=== PATIENT | female | born 1985 | race Caucasian/White ===

== ENCOUNTER 2017-03-06 13:07 | Emergency (ER) | payer OTHER ==
[~2017-03-06] VITALS: Ht 157.5 cm; Wt 54.4 kg
[2017-03-06 14:13] VITALS: BP 118/72
== END 2017-03-06 14:13 | disposition home or self-care (01) ==
LOC: ED 13:07
DX: S90.121A Contusion of right lesser toe(s) without damage to nail, initial encounter (principal); X58.XXXA Exposure to other specified factors, initial encounter; Y93.89 Activity, other specified; Y92.89 Other specified places as the place of occurrence of the external cause; Y99.8 Other external cause status
CPT/HCPCS: Q0092

== ENCOUNTER 2017-07-21 09:57 | Emergency (ER) | payer OTHER ==
[~2017-07-21] VITALS: Ht 157.5 cm; Wt 54.6 kg
[2017-07-21 12:32] LABS: BASOPHIL % 0.4 % (0-2)
[2017-07-21 12:35] LABS: PLATELET COUNT 419 x10^3mcL (130-400); RED CELL DISTRIBUTION WIDTH 15.1 % (11.5-14.5)
[2017-07-21 12:36] LABS: UA SPECIFIC GRAVITY <=1.005 (1.005-1.035); microscopic required? YES; urine erythrocyte NEGATIVE (NEGATIVE)
[2017-07-21 12:42] LABS: CALCIUM 9.1 mg/dL (8.5-10.1); CARBON DIOXIDE 27.8 mmol/L (21-32); CHLORIDE SERUM 102 mmol/L (98-107); CREATININE SERUM 0.6 mg/dL (0.6-1.0); GFR1 > 60 mL/min; GLUCOSE SERUM 90 mg/dL (74-106); POTASSIUM SERUM 3.9 mmol/L (3.5-5.1); SODIUM SERUM 137 mmol/L (136-145)
[2017-07-21 12:47] LABS: ALBUMIN 3.9 g/dL (3.4-5.0); ALKALINE PHOSPHATASE 43 U/L (46-116); ALT/SGPT 20 U/L (14-59); AST/SGOT 17 U/L (15-37); BILIRUBIN TOTAL 0.36 mg/dL (0.20-1.00); TOTAL PROTEIN, SERUM 8.3 g/dL (6.4-8.2)
[2017-07-21 14:14] VITALS: BP 103/62
== END 2017-07-21 14:25 | disposition home or self-care (01) ==
LOC: ED 09:57
PROVIDERS: Emergency Medicine
DX: O26.891 Other specified pregnancy related conditions, first trimester (principal); R53.1 Weakness; R11.0 Nausea; Z88.0 Allergy status to penicillin; F41.9 Anxiety disorder, unspecified; M79.7 Fibromyalgia; M06.9 Rheumatoid arthritis, unspecified
CPT/HCPCS: J2405; J7030

== ENCOUNTER 2017-09-29 09:15 | Emergency (ER) | payer OTHER ==
[~2017-09-29] VITALS: Ht 157.5 cm; Wt 54.5 kg
[2017-09-29 09:27] VITALS: BP 137/77; Ht 157.5 cm; Wt 54.5 kg
== END 2017-09-29 12:08 | disposition home or self-care (01) ==
LOC: ED 09:15
DX: O03.9 Complete or unspecified spontaneous abortion without complication (principal); M79.7 Fibromyalgia; Z88.0 Allergy status to penicillin

== ENCOUNTER 2018-03-03 17:11 | Emergency (ER) | payer OTHER ==
[~2018-03-03] VITALS: Ht 157.5 cm; Wt 55.3 kg
[2018-03-03 17:21] VITALS: Ht 157.5 cm; Wt 55.3 kg
[2018-03-03 17:35] LABS: BASOPHIL % 0.5 % (0-2); PLATELET COUNT 359 x10^3mcL (130-400)
[2018-03-03 17:42] LABS: microscopic required? NO
[2018-03-03 17:48] LABS: UA SPECIFIC GRAVITY <=1.005 (1.005-1.035); urine erythrocyte NEGATIVE (NEGATIVE)
[2018-03-03 18:17] LABS: RED CELL DISTRIBUTION WIDTH 16.5 % (11.5-14.5)
[2018-03-03 19:09] VITALS: BP 103/69
== END 2018-03-03 19:09 | disposition home or self-care (01) ==
LOC: ED 17:11
PROVIDERS: Emergency Medicine
DX: O20.0 Threatened abortion (principal); N93.9 Abnormal uterine and vaginal bleeding, unspecified; M54.5 Low back pain; M06.9 Rheumatoid arthritis, unspecified; Z88.0 Allergy status to penicillin; Z3A.01 Less than 8 weeks gestation of pregnancy
CPT/HCPCS: 36415; Q0092

== ENCOUNTER 2018-03-23 11:47 | Emergency (ER) | payer OTHER ==
[~2018-03-23] VITALS: Ht 157.5 cm; Wt 56.2 kg
[2018-03-23 11:52] VITALS: Ht 157.5 cm; Wt 56.2 kg
[2018-03-23 12:31] LABS: BASOPHIL % 0.4 % (0-2); PLATELET COUNT 347 x10^3mcL (130-400)
[2018-03-23 12:33] LABS: RED CELL DISTRIBUTION WIDTH 16.4 % (11.5-14.5)
[2018-03-23 12:53] LABS: UA SPECIFIC GRAVITY <=1.005 (1.005-1.035); microscopic required? YES; urine erythrocyte NEGATIVE (NEGATIVE)
[2018-03-23 15:08] VITALS: BP 119/77
== END 2018-03-23 15:08 | disposition home or self-care (01) ==
LOC: ED 11:47
PROVIDERS: Emergency Medicine
DX: O23.41 Unspecified infection of urinary tract in pregnancy, first trimester (principal); D64.9 Anemia, unspecified; M06.9 Rheumatoid arthritis, unspecified; M79.7 Fibromyalgia; F41.9 Anxiety disorder, unspecified; Z3A.01 Less than 8 weeks gestation of pregnancy; Z88.0 Allergy status to penicillin
CPT/HCPCS: 36415

== ENCOUNTER 2018-05-13 13:35 | Emergency (ER) | payer OTHER ==
[~2018-05-13] VITALS: Ht 157.5 cm; Wt 58.1 kg
[2018-05-13 13:51] VITALS: BP 120/75; Ht 157.5 cm; Wt 58.1 kg
== END 2018-05-13 14:49 | disposition home or self-care (01) ==
LOC: ED 13:35
DX: S02.5XXA Fracture of tooth (traumatic), initial encounter for closed fracture (principal); O26.891 Other specified pregnancy related conditions, first trimester; Z3A.14 14 weeks gestation of pregnancy; X58.XXXA Exposure to other specified factors, initial encounter; Y93.89 Activity, other specified; Y92.89 Other specified places as the place of occurrence of the external cause; Y99.8 Other external cause status

== ENCOUNTER 2018-05-29 03:18 | Emergency (ER) | payer OTHER ==
[~2018-05-29] VITALS: Ht 157.5 cm; Wt 58.1 kg
[2018-05-29 03:22] VITALS: Ht 157.5 cm; Wt 58.1 kg
[2018-05-29 04:16] LABS: BASOPHIL % 0.6 % (0-2); PLATELET COUNT 331 x10^3mcL (130-400); RED CELL DISTRIBUTION WIDTH 13.2 % (11.5-14.5)
[2018-05-29 04:49] VITALS: BP 100/62
== END 2018-05-29 04:50 | disposition home or self-care (01) ==
LOC: ED 03:18
PROVIDERS: Emergency Medicine
DX: O26.891 Other specified pregnancy related conditions, first trimester (principal); R00.2 Palpitations; Z3A.16 16 weeks gestation of pregnancy
CPT/HCPCS: 36415

== ENCOUNTER 2018-06-22 14:49 | Emergency (ER) | payer OTHER ==
[~2018-06-22] VITALS: Ht 157.5 cm; Wt 61.2 kg
[2018-06-22 15:00] VITALS: Ht 157.5 cm; Wt 61.2 kg
[2018-06-22 17:37] LABS: BASOPHIL % 0.5 % (0-2); PLATELET COUNT 371 x10^3mcL (130-400); RED CELL DISTRIBUTION WIDTH 14.5 % (11.5-14.5)
[2018-06-22 17:42] LABS: CALCIUM 8.9 mg/dL (8.5-10.1); CARBON DIOXIDE 22.7 mmol/L (21-32); CHLORIDE SERUM 105 mmol/L (98-107); CREATININE SERUM 0.7 mg/dL (0.6-1.0); GFR1 > 60 mL/min; GLUCOSE SERUM 102 mg/dL (74-106); POTASSIUM SERUM 3.9 mmol/L (3.5-5.1); SODIUM SERUM 139 mmol/L (136-145)
[2018-06-22 17:47] LABS: ALKALINE PHOSPHATASE 62 U/L (46-116); ALT/SGPT 26 U/L (14-59); AST/SGOT 27 U/L (15-37); LIPASE 236 IU/L (73-393); TOTAL PROTEIN, SERUM 7.6 g/dL (6.4-8.2)
[2018-06-22 20:40] VITALS: BP 111/64
== END 2018-06-22 20:39 | disposition left against medical advice (07) ==
LOC: ED 14:49
PROVIDERS: Emergency Medicine
DX: O99.012 Anemia complicating pregnancy, second trimester (principal); D64.9 Anemia, unspecified; O26.892 Other specified pregnancy related conditions, second trimester; R00.2 Palpitations; R10.9 Unspecified abdominal pain; M06.9 Rheumatoid arthritis, unspecified; O99.89 Other specified diseases and conditions complicating pregnancy, childbirth and the puerperium; M79.7 Fibromyalgia; Z98.890 Other specified postprocedural states; Z3A.20 20 weeks gestation of pregnancy
CPT/HCPCS: 85378; J7030

== ENCOUNTER 2018-06-30 14:26 | Emergency (ER) | payer OTHER ==
[~2018-06-30] VITALS: Ht 157.5 cm; Wt 62.1 kg
[2018-06-30 14:35] VITALS: Ht 157.5 cm; Wt 62.1 kg
[2018-06-30 16:24] LABS: UA SPECIFIC GRAVITY <=1.005 (1.005-1.035); microscopic required? YES; urine erythrocyte NEGATIVE (NEGATIVE)
[2018-06-30 17:47] LABS: CALCIUM 8.7 mg/dL (8.5-10.1); CARBON DIOXIDE 23.7 mmol/L (21-32); CHLORIDE SERUM 104 mmol/L (98-107); CREATININE SERUM 0.6 mg/dL (0.6-1.0); GFR1 > 60 mL/min; GLUCOSE SERUM 86 mg/dL (74-106); POTASSIUM SERUM 3.7 mmol/L (3.5-5.1); SODIUM SERUM 140 mmol/L (136-145)
[2018-06-30 17:52] LABS: ALKALINE PHOSPHATASE 62 U/L (46-116); ALT/SGPT 24 U/L (14-59); AST/SGOT 26 U/L (15-37); BILIRUBIN TOTAL 0.21 mg/dL (0.20-1.00); TOTAL PROTEIN, SERUM 7.3 g/dL (6.4-8.2)
[2018-06-30 17:53] LABS: ALBUMIN 2.9 g/dL (3.4-5.0)
[2018-06-30 18:05] LABS: BASOPHIL % 0.5 % (0-2); PLATELET COUNT 365 x10^3mcL (130-400); RED CELL DISTRIBUTION WIDTH 13.7 % (11.5-14.5)
[2018-06-30 18:41] VITALS: BP 115/73
== END 2018-06-30 19:11 | disposition home or self-care (01) ==
LOC: ED 14:26
PROVIDERS: Emergency Medicine
DX: O23.42 Unspecified infection of urinary tract in pregnancy, second trimester (principal); O99.340 Other mental disorders complicating pregnancy, unspecified trimester; F41.9 Anxiety disorder, unspecified; Z3A.23 23 weeks gestation of pregnancy; Z98.890 Other specified postprocedural states; M79.7 Fibromyalgia; Z86.2 Personal history of diseases of the blood and blood-forming organs and certain disorders involving the immune mechanism
CPT/HCPCS: J0696; J7030

== ENCOUNTER 2018-07-12 13:03 | Emergency (ER) | payer OTHER ==
[~2018-07-12] VITALS: Ht 157.5 cm; Wt 62.6 kg
[2018-07-12 13:15] VITALS: Ht 157.5 cm; Wt 62.6 kg
[2018-07-12 14:21] LABS: PLATELET COUNT 345 x10^3mcL (130-400)
[2018-07-12 14:22] LABS: RED CELL DISTRIBUTION WIDTH 14.9 % (11.5-14.5)
[2018-07-12 14:27] LABS: CALCIUM 8.8 mg/dL (8.5-10.1); CARBON DIOXIDE 24.5 mmol/L (21-32); CHLORIDE SERUM 102 mmol/L (98-107); CREATININE SERUM 0.7 mg/dL (0.6-1.0); GFR1 > 60 mL/min; GLUCOSE SERUM 102 mg/dL (74-106); POTASSIUM SERUM 3.5 mmol/L (3.5-5.1); SODIUM SERUM 131 mmol/L (136-145)
[2018-07-12 14:43] LABS: T4(THYROXINE) 14.7 ug/dL (4.7-13.3)
[2018-07-12 14:55] LABS: BAND NEUTROPHIL 0 % (0-10); BASOPHIL 0 % (0-2); MONOCYTE 5 % (0-7); SEGMENTED NEUTROPHILS 77 % (37-75)
[2018-07-12 14:56] LABS: rbc morphology (normal/abnorm) NORMAL (NORMAL)
[2018-07-12 15:33] VITALS: BP 110/75
== END 2018-07-12 15:33 | disposition home or self-care (01) ==
LOC: ED 13:03
PROVIDERS: Emergency Medicine
DX: O26.892 Other specified pregnancy related conditions, second trimester (principal); R42 Dizziness and giddiness; R53.1 Weakness; R06.02 Shortness of breath; R00.2 Palpitations; O99.282 Endocrine, nutritional and metabolic diseases complicating pregnancy, second trimester; E07.9 Disorder of thyroid, unspecified; O99.89 Other specified diseases and conditions complicating pregnancy, childbirth and the puerperium; M06.9 Rheumatoid arthritis, unspecified; M79.7 Fibromyalgia; O99.342 Other mental disorders complicating pregnancy, second trimester; F41.9 Anxiety disorder, unspecified; Z86.2 Personal history of diseases of the blood and blood-forming organs and certain disorders involving the immune mechanism; Z3A.21 21 weeks gestation of pregnancy
CPT/HCPCS: 36415; 82962

== ENCOUNTER 2018-08-08 15:09 | Emergency (ER) | payer OTHER ==
[~2018-08-08] VITALS: Ht 157.5 cm; Wt 64.4 kg
[2018-08-08 15:19] VITALS: Ht 157.5 cm; Wt 64.4 kg
[2018-08-08 16:48] LABS: microscopic required? YES; urine erythrocyte NEGATIVE (NEGATIVE)
[2018-08-08 16:49] LABS: PLATELET COUNT 402 x10^3mcL (130-400); RED CELL DISTRIBUTION WIDTH 15.6 % (11.5-14.5)
[2018-08-08 16:56] LABS: CALCIUM 8.5 mg/dL (8.5-10.1); CARBON DIOXIDE 29.3 mmol/L (21-32); CHLORIDE SERUM 104 mmol/L (98-107); CREATININE SERUM 0.5 mg/dL (0.6-1.0); GFR1 > 60 mL/min; GLUCOSE SERUM 85 mg/dL (74-106); POTASSIUM SERUM 3.6 mmol/L (3.5-5.1); SODIUM SERUM 137 mmol/L (136-145)
[2018-08-08 17:11] LABS: FREE T4 0.89 ng/dL (0.76-1.46)
[2018-08-08 17:13] LABS: FREE THYROXINE INDEX 3.4 ug/dL (1.4-4.5); T4(THYROXINE) 17.2 ug/dL (4.7-13.3)
[2018-08-08 17:18] LABS: T3 TOTAL 2.56 ng/mL
[2018-08-08 18:14] VITALS: BP 125/74
== END 2018-08-08 18:14 | disposition home or self-care (01) ==
LOC: ED 15:09
PROVIDERS: Emergency Medicine
DX: O23.42 Unspecified infection of urinary tract in pregnancy, second trimester (principal); O99.012 Anemia complicating pregnancy, second trimester; R00.2 Palpitations; O26.892 Other specified pregnancy related conditions, second trimester; F41.9 Anxiety disorder, unspecified; M06.9 Rheumatoid arthritis, unspecified; Z3A.27 27 weeks gestation of pregnancy
CPT/HCPCS: 36415; 84439

== ENCOUNTER 2018-08-18 08:49 | Emergency (ER) | payer OTHER ==
[~2018-08-18] VITALS: Ht 157.5 cm; Wt 64.9 kg
[2018-08-18 09:01] VITALS: BP 134/79; Ht 157.5 cm; Wt 64.9 kg
== END 2018-08-18 10:00 | disposition left against medical advice (07) ==
LOC: ED 08:49
DX: O26.892 Other specified pregnancy related conditions, second trimester (principal); O99.342 Other mental disorders complicating pregnancy, second trimester; R10.9 Unspecified abdominal pain; R10.2 Pelvic and perineal pain; M79.7 Fibromyalgia; M06.9 Rheumatoid arthritis, unspecified; F41.9 Anxiety disorder, unspecified; Z3A.28 28 weeks gestation of pregnancy

== ENCOUNTER 2018-08-28 18:32 | Emergency (ER) | payer OTHER ==
[~2018-08-28] VITALS: Ht 157.5 cm; Wt 65.5 kg
[2018-08-28 18:50] VITALS: Ht 157.5 cm; Wt 65.5 kg
[2018-08-28 20:06] VITALS: BP 125/75
== END 2018-08-28 20:06 | disposition home or self-care (01) ==
LOC: ED 18:32
DX: O23.43 Unspecified infection of urinary tract in pregnancy, third trimester (principal); O99.713 Diseases of the skin and subcutaneous tissue complicating pregnancy, third trimester; F41.9 Anxiety disorder, unspecified; M06.9 Rheumatoid arthritis, unspecified; M79.7 Fibromyalgia; Z3A.30 30 weeks gestation of pregnancy

== ENCOUNTER 2018-09-23 10:27 | Emergency (ER) | payer OTHER ==
[~2018-09-23] VITALS: Ht 157.5 cm; Wt 66.2 kg
[2018-09-23 10:33] VITALS: Ht 157.5 cm; Wt 66.2 kg
[2018-09-23 11:37] LABS: BASOPHIL % 0.8 % (0-2); PLATELET COUNT 370 x10^3mcL (130-400)
[2018-09-23 11:39] LABS: RED CELL DISTRIBUTION WIDTH 16.5 % (11.5-14.5)
[2018-09-23 12:19] LABS: microscopic required? YES; urine erythrocyte NEGATIVE (NEGATIVE)
[2018-09-23 12:34] LABS: ALKALINE PHOSPHATASE 114 U/L (46-116); ALT/SGPT 74 U/L (14-59); AST/SGOT 61 U/L (15-37); BILIRUBIN TOTAL 0.3 mg/dL (0.20-1.00); CARBON DIOXIDE 25.8 mmol/L (21-32); CHLORIDE SERUM 103 mmol/L (98-107); CREATININE SERUM 0.7 mg/dL (0.6-1.0); GFR1 > 60 mL/min; GLUCOSE SERUM 75 mg/dL (74-106); LIPASE 255 IU/L (73-393); POTASSIUM SERUM 4.4 mmol/L (3.5-5.1); SODIUM SERUM 138 mmol/L (136-145); TOTAL PROTEIN, SERUM 6.7 g/dL (6.4-8.2)
[2018-09-23 12:40] LABS: ALBUMIN 2.6 g/dL (3.4-5.0)
[2018-09-23 12:48] LABS: CALCIUM 8.7 mg/dL (8.5-10.1)
[2018-09-23 14:08] VITALS: BP 101/69
== END 2018-09-23 14:08 | disposition home or self-care (01) ==
LOC: ED 10:27
PROVIDERS: Emergency Medicine
DX: O23.43 Unspecified infection of urinary tract in pregnancy, third trimester (principal); D64.9 Anemia, unspecified; F41.9 Anxiety disorder, unspecified; M79.7 Fibromyalgia; R73.03 Prediabetes; Z3A.30 30 weeks gestation of pregnancy
CPT/HCPCS: J2405; J7030

== ENCOUNTER 2018-10-28 16:45 | Emergency (ER) | payer OTHER ==
[~2018-10-28] VITALS: Ht 157.5 cm; Wt 72.6 kg
[2018-10-28 16:47] VITALS: Ht 157.5 cm; Wt 72.6 kg
[2018-10-28 17:20] VITALS: BP 134/87
== END 2018-10-28 17:20 | disposition home or self-care (01) ==
LOC: ED 16:45
DX: O99.613 Diseases of the digestive system complicating pregnancy, third trimester (principal); K21.9 Gastro-esophageal reflux disease without esophagitis; R51 Headache; F41.9 Anxiety disorder, unspecified; M06.9 Rheumatoid arthritis, unspecified; M79.7 Fibromyalgia; Z3A.27 27 weeks gestation of pregnancy; Z86.2 Personal history of diseases of the blood and blood-forming organs and certain disorders involving the immune mechanism

== ENCOUNTER 2019-02-03 05:27 | Emergency (ER) | payer OTHER ==
[~2019-02-03] VITALS: Ht 157.5 cm; Wt 62.6 kg
[2019-02-03 05:32] VITALS: Ht 157.5 cm; Wt 62.6 kg
[2019-02-03 06:46] LABS: BASOPHIL % 0.7 % (0-2); PLATELET COUNT 309 x10^3mcL (130-400)
[2019-02-03 07:01] LABS: RED CELL DISTRIBUTION WIDTH 16.7 % (11.5-14.5)
[2019-02-03 07:02] LABS: CHLORIDE SERUM 102 mmol/L (98-107); GFR1 > 60 mL/min; GLUCOSE SERUM 85 mg/dL (74-106)
[2019-02-03 07:04] LABS: ALBUMIN 3.9 g/dL (3.4-5.0); CALCIUM 9.4 mg/dL (8.5-10.1); CARBON DIOXIDE 24.3 mmol/L (21-32); CREATININE SERUM 0.8 mg/dL (0.6-1.0); POTASSIUM SERUM 3.4 mmol/L (3.5-5.1); SODIUM SERUM 135 mmol/L (136-145)
[2019-02-03 07:35] LABS: ALKALINE PHOSPHATASE 79 U/L (46-116); ALT/SGPT 29 U/L (14-59); AST/SGOT 19 U/L (15-37); BILIRUBIN TOTAL 0.29 mg/dL (0.20-1.00); T4(THYROXINE) 9.1 ug/dL (4.7-13.3); TOTAL PROTEIN, SERUM 7.5 g/dL (6.4-8.2)
[2019-02-03 08:08] VITALS: BP 110/79
== END 2019-02-03 08:08 | disposition home or self-care (01) ==
LOC: ED 05:27
PROVIDERS: Emergency Medicine
DX: O26.892 Other specified pregnancy related conditions, second trimester (principal); R00.2 Palpitations; R20.2 Paresthesia of skin; F41.9 Anxiety disorder, unspecified; Z86.2 Personal history of diseases of the blood and blood-forming organs and certain disorders involving the immune mechanism; Z3A.27 27 weeks gestation of pregnancy
CPT/HCPCS: 36415

== ENCOUNTER 2019-02-09 17:23 | Emergency (ER) | payer OTHER ==
[~2019-02-09] VITALS: Ht 157.5 cm; Wt 61.2 kg
[2019-02-09 17:30] VITALS: Ht 157.5 cm; Wt 61.2 kg
[2019-02-09 18:06] LABS: BASOPHIL % 0.2 % (0-2); PLATELET COUNT 304 x10^3mcL (130-400)
[2019-02-09 18:09] LABS: RED CELL DISTRIBUTION WIDTH 15.9 % (11.5-14.5)
[2019-02-09 18:18] LABS: CALCIUM 9.2 mg/dL (8.5-10.1); CARBON DIOXIDE 26.8 mmol/L (21-32); CHLORIDE SERUM 97 mmol/L (98-107); CREATININE SERUM 0.9 mg/dL (0.6-1.0); GFR1 > 60 mL/min; GLUCOSE SERUM 109 mg/dL (74-106); POTASSIUM SERUM 3.4 mmol/L (3.5-5.1); SODIUM SERUM 135 mmol/L (136-145)
[2019-02-09 18:23] LABS: ALBUMIN 4.2 g/dL (3.4-5.0); ALKALINE PHOSPHATASE 96 U/L (46-116); ALT/SGPT 29 U/L (14-59); AST/SGOT 24 U/L (15-37); BILIRUBIN TOTAL 0.3 mg/dL (0.20-1.00)
[2019-02-09 18:25] LABS: TOTAL PROTEIN, SERUM 8.5 g/dL (6.4-8.2)
[2019-02-09 20:22] VITALS: BP 122/80
== END 2019-02-09 20:22 | disposition home or self-care (01) ==
LOC: ED 17:23
PROVIDERS: Emergency Medicine
DX: N61.0 Mastitis without abscess (principal); N39.0 Urinary tract infection, site not specified; F41.9 Anxiety disorder, unspecified; M06.9 Rheumatoid arthritis, unspecified
CPT/HCPCS: J7030